=== PATIENT | female | born 1955 | race Caucasian/White ===

== ENCOUNTER → 2025-02-27 | Outpatient (CLI) | payer OTHER, SELFPAY ==
--- NOTE | 2025-02-27 11:03 | RAD_ITS ---
PROCEDURE: SHOULDER MIN 2 VIEWS 02/27/2025 REASON FOR EXAM: LEFT SHOULD PAIN TECHNIQUE: Four view right shoulder series and four view left shoulder series. COMPARISON: None. RAD/Shoulder min 2 Views IMPRESSION: Right shoulder: [id number] right acromioclavicular joint degenerative changes are seen, w ith partial joint narrowing. Decreased acromiohumeral distance and moderate degenerative changes about the r ight humeral head greater tuberosity further suggest the presence of chronic rotator cuff disease. At least mild right glenohumeral joint degenerative changes are noted, without definite joint narrowing seen. No acute fracture or dislocation is evident. Left shoulder: Moderate left acromioclavicular joint degenerative changes are seen. Degenerative changes about the left humeral head greater tuberosity further sug gest the presence of chronic rotator cuff disease. Mild left glenohumeral joint degenerative changes are noted. No fracture or dislocation is seen. Reading Location: [place] [id number]
--- NOTE | 2025-02-27 11:03 | RAD_ITS ---
PROCEDURE: SHOULDER MIN 2 VIEWS 02/27/2025 REASON FOR EXAM: LEFT SHOULD PAIN TECHNIQUE: Four view right shoulder series and four view left shoulder series. COMPARISON: None. RAD/Shoulder min 2 Views IMPRESSION: Right shoulder: [id number] right acromioclavicular joint degenerative changes are seen, w ith partial joint narrowing. Decreased acromiohumeral distance and moderate degenerative changes about the r ight humeral head greater tuberosity further suggest the presence of chronic rotator cuff disease. At least mild right glenohumeral joint degenerative changes are noted, without definite joint narrowing seen. No acute fracture or dislocation is evident. Left shoulder: Moderate left acromioclavicular joint degenerative changes are seen. Degenerative changes about the left humeral head greater tuberosity further sug gest the presence of chronic rotator cuff disease. Mild left glenohumeral joint degenerative changes are noted. No fracture or dislocation is seen. Reading Location: [place] [id number]
[2025-02-27 11:20] LABS: Hematocrit 36.9 % (37-47); Hemoglobin 11.8 g/dL (12.0-15.0); Immature Granulocytes Count 0.030 X10^3/uL (0.0-0.0); Mean Corp Hgb Conc 32.0 g/dL (32-36); Mean Corpuscular Volume 88.5 fL (81-99); Mean Platelet Vol. 10.3 fl (6.2-12.0); NRBC Flagged by Analyzer 0 % (0-5); Platelet Count 201 K/mm3 (150-450); RBC Distribution Width CV 13.7 % (11.6-14.6); RBC Distribution Width SD 44.2 fl (35.1-43.9); Red Blood Count 4.17 M/mm3 (4.2-5.4); White Blood Count 7.3 K/mm3 (4.4-11.0)
[2025-02-27 12:25] LABS: AST(SGOT) 21 U/L (<=31); Alanine Aminotransfer ALT/SGPT 18 U/L (<=34); Albumin, Serum 4.1 g/dL (3.4-4.8); Alkaline Phosphatase 57 U/L (35-104); Anion Gap 12 (5-15); BUN 21 mg/dL (4-19); BUN/Creat Ratio 26.4 RATIO (10-20); Calcium,Total 9.4 mg/dL (7.6-11.0); Carbon Dioxide 24.8 mmol/L (21.0-32.0); Chloride 104 mmol/L (98-108); Globulin 2.6 g/dL (2.2-4.2); Glucose 88 mg/dL (70-99); Potassium 3.6 mmol/L (3.3-5.1)
[2025-02-27 12:41] LABS: CRP 4.24 mg/L (0.0-3.0); Hepatitis B Surface Antigen Nonreactive (Nonreactive); Hepatitis C Antibody Nonreactive (Nonreactive)
[2025-02-28 13:08] LABS: ANTINUCLEAR ANTIBODIES DIRECT Negative (Negative)
== END | disposition home or self-care (01) ==
LOC: LAB 10:46
PROVIDERS: Referring Provider Internal Medicine Rheumatology; Visit Provider Internal Medicine Rheumatology
DX: M06.4 Inflammatory polyarthropathy (principal); M47.897 Other spondylosis, lumbosacral region; M51.369 Other intervertebral disc degeneration, lumbar region without mention of lumbar back pain or lower extremity pain; M16.0 Bilateral primary osteoarthritis of hip; M17.0 Bilateral primary osteoarthritis of knee; I10 Essential (primary) hypertension; I83.899 Varicose veins of unspecified lower extremity with other complications
CPT/HCPCS: 36415; 73030; 80053; 85025; 85652; 86038; 86140; 86200; 86431; 86706; 86803; 87340